=== PATIENT | male | born 1935 | race American Indian/Alaskan Native ===

== ENCOUNTER 2022-11-04 11:46 | Emergency (ER) | payer MEDICAID ==
[~2022-11-04] VITALS: Ht 172.7 cm; Wt 72.7 kg
[2022-11-04 12:02] VITALS: BP 94/66
[2022-11-04] MEDS ORDERED: DOCU-171 PO (13:36)
[2022-11-04] MEDS ORDERED: MELA5TAB12 PO (13:36)
== END 2022-11-04 13:52 | disposition home or self-care (01) ==
LOC: ER 11:47
DX: G43.909 Migraine, unspecified, not intractable, without status migrainosus (principal); K59.00 Constipation, unspecified; N39.43 Post-void dribbling
CPT/HCPCS: 99284

== ENCOUNTER 2024-11-01 09:00 | Inpatient (IN) | payer MEDICARE, OTHER ==
[2024-11-01] VITALS (12 sets, daily range): BP systolic 81–103; BP diastolic 31–61; PULSE 84–113; RESP 11–13; O2SAT 92–98
[~2024-11-01] VITALS: Ht 175.3 cm; Wt 64.0 kg
[~2024-11-01 09:00] MED LIST: AMLO5TAB PO; APIX5TAB5 PO; CHOL50CA2 PO; DOCU-171 PO; MELA5TAB12 PO; METO-395 PO; PRAZ2CAP2 PO; TRAZ-251 PO
--- NOTE | 2024-11-01 09:36 | Physician Documentation ---
History of Present Illness General Chief Complaint: Difficulty Breathing Stated Complaint: DIFFICULTY BREATHING Time Seen by MD: 09:32 Primary Medical Doctor: MARIYA History of Present Illness Initial Comments The patient is an 88-year-old male with a history of atrial fibrillation, bilateral pleural effusions, liver disease, dementia, hypertension, prostate can cer and pneumonia who comes to us from [place] with hypotension. He was transferred there for rehab after being treated for pneumonia here. He was admitted here on 10/15/2024 and discharged on 10/20/2024 two [place]. He was thought to have multifocal pneumonia and possibly CHF. Medication Reconciliation Allergies: Coded Allergies: No Known Allergies (Unverified , 11/01/24) Scheduled Amlodipine Besylate (Amlodipine Besylate), 1 TABLET PO DAILY, (Reported) Apixaban (Eliquis), 1 TAB PO BID, (Reported) Cholecalciferol (Vitamin D3) (Vitamin D3), 1 CAP PO DAILY, (Reported) Docusate Sodium (Dulcolax Stool Softener), 1 CAP PO DAILY Melatonin (Melatonin), 1 TAB PO HS Metoprolol Succinate (Metoprolol Succinate), 1 TAB PO DAILY, (Reported) Prazosin Hcl (Prazosin Hcl), 2 CAP PO HS, (Reported) Trazodone HCl (Trazodone HCl), 1 TAB PO HS, (Reported) Discontinued Medications Amoxicillin/Potassium Clav (Augmentin 500-125 Tablet), 1 TAB PO Q12H Discontinued Reason: Auto Discontinued Review of Systems ROS Unable to obtain due to acuity Physical Exam Physical Exam Vital Signs: Temperature: 99.1, Heart Rate: 125, Respiratory Rate: 12, BP: 78/38, Pulse Oximetry: 98, Weight: 64.000 Oxygen Flow Rate: 2.0 General Appearance Physical Exam Vitals and nursing note reviewed. Constitutional: General: Patient is awake, alert, oriented x 2 appears acutely ill. Appearance: Normal appearance. Patient is ill-appearing. HENT: Head: Normocephalic and atraumatic. Mouth/Throat: Mouth: Mucous membranes are moist. Pharynx: Oropharynx is clear. Eyes: General: No scleral icterus. Extraocular Movements: Extraocular movements intact. Pupils: Pupils are equal, round, and reactive to light. Cardiovascular: Rate and Rhythm: Normal rate and regular rhythm. Heart sounds: No murmur heard. Pulmonary: Effort: No respiratory distress. Breath sounds: Rales and rhonchi bilaterally Abdominal: General: There is no distension. Palpations: There is no fluid wave, hepatomegaly or mass. Tenderness: There is no abdominal tenderness. There is no guarding. Musculoskeletal: General: No swelling or deformity. Skin: Coloration: Skin is not jaundiced. Findings: No erythema or rash. Progress Results/Orders Results/Orders Orders - HERNANDO GOMEZ MD Culture Blood (11/01/24 09:16) Chest,Single View (11/01/24 09:16) Monitor (11/01/24 09:16) Oxygen (11/01/24 09:16) Saline Lock (11/01/24 09:16) Cefepime 2gm In D5w 50ml (Cefepime-D5w 2 (11/01/24 10:15) Page Hospitalist (11/01/24 11:43) Norepinephrine 8mg/ 250ml Ns (Norepineph (11/01/24 12:30) Completed Orders - HERNANDO GOMEZ MD Cbc/Diff (11/01/24 09:16) Chest,Single View (11/01/24 09:16) Procalcitonin (11/01/24 09:16) BMP (11/01/24 09:16) Lacticsepsis (11/01/24 09:16) Ammonia (11/01/24 09:32) MG (11/01/24 09:32) CMP (11/01/24 09:32) Hs Troponin I W Calculations (11/01/24 09:32) Pt Inr (11/01/24 09:32) Lactic,2hr (11/01/24 11:37) Ua W/Microscopic, Cult If Ind (11/01/24 14:30) Medications Received in ER Medications (Trade) Dose Ordered Sig/Sheyla Route PRN Reason Start Time Stop Time Status Last Admin Dose Admin Cefepime/Dextrose 50 ml @ 100 mls/hr Q8H IV 11/01/24 10:15 11/01/24 16:00 100 MLS/HR Lactated Ringer's 1,000 ml @ 1,000 mls/hr ONCE ONCE IV 11/01/24 12:15 11/01/24 13:14 DC 11/01/24 12:19 1,000 MLS/HR Lactated Ringer's 1,000 ml @ 150 mls/hr Q6H40M IV 11/01/24 12:35 11/01/24 14:45 150 MLS/HR Vital Signs 11/01/24 11/01/24 11/01/24 11/01/24 09:18 09:54 10:15 11:25 Temp 99.1 99.1 99.1 Pulse 125 95 84 Resp 12 13 16 15 B/P (MAP) 78/38 82/40 (54) 83/51 (62) Pulse Ox 98 99 99 O2 Flow Rate 2.0 2.0 2.0 11/01/24 12:40 Temp 99.1 Pulse 77 Resp 14 B/P (MAP) 94/52 (66) Pulse Ox 95 O2 Flow Rate 4.0 Laboratory Tests Test 11/01/24 10:04 11/01/24 11:46 White Blood Count 7.3 Red Blood Count 3.57 L Hemoglobin 11.5 L Hematocrit 34.1 L Mean Corpuscular Volume 95.5 Mean Corpuscular Hemoglobin 32.1 H Mean Corpuscular Hemoglobin Concent 33.7 Red Cell Distribution Width 16.7 H Platelet Count 107 L Mean Platelet Volume 9.0 Neutrophils (%) (Auto) 88.6 H Lymphocytes (%) (Auto) 5.3 L Monocytes (%) (Auto) 5.9 Eosinophils (%) (Auto) 0 Basophils (%) (Auto) 0.2 Neutrophils # (Auto) 6.5 Lymphocytes # (Auto) 0.4 L Monocytes # (Auto) 0.4 Eosinophils # (Auto) 0.0 Basophils # (Auto) 0.0 CBC Comment Prothrombin Time 16.9 H INR International Normalized Ratio 1.7 Coagulation Comments Sodium Level 146 H Potassium Level 4.6 Chloride Level 110 H Carbon Dioxide Level 31.6 Anion Gap 4 L Blood Urea Nitrogen 37 H Creatinine 0.74 Estimated GFR/1.73 m2 > 90 BUN/Creatinine Ratio 50.0 H Glucose Level 99 Lactic Acid Level 2.4 H 2.0 Calcium Level 10.3 H Magnesium Level 1.9 Total Bilirubin 2.2 H Aspartate Amino Transf (AST/SGOT) 39 H Alanine Aminotransferase (ALT/SGPT) 15 Alkaline Phosphatase 95 Ammonia 27 Troponin I High Sensitivity 19 Total Protein 4.7 L Albumin 2.0 L Globulin 2.7 Albumin/Globulin Ratio 0.7 L Procalcitonin 0.27 Chemistry Comments Microbiology Date/Time Source Procedure Growth Status 11/01/24 10:14 Blood Arm Left Blood Culture - Preliminary NEGATIVE (LESS THAN 24 HOURS) Resulted Medical Decision Making Findings This 88-year-old male was transferred here from [facility] with hypotension. He had been sent there after being treated here for pneumonia. It appears he may still have pneumonia and I have covered this with antibiotics. He requires admission to the registered nurse obstetrics. Departure Disposition: ADMITTED INPATIENT Admitted to Inpatient Unit: to registered nurse obstetrics Admission Level of Care: Critcal Care Impression: Primary Impression: Pneumonia Additional Impression: Hypotension Condition: Guarded Referrals: NO PRIMARY CARE PROVIDER (PCP) Critical Care Note Critical Care Note Due to the high probability of multi-system failure required my full attention for about 60 minutes while the patient was critical. I provided critical care services which included medication orders, frequent re-evaluations, response to treatment, renewing test results, and discussing case with various consultants. Unless specifically stated all procedures, tests, and medications were performed/interpreted under the direct supervision of the emergency department physician. Signature Scribe Signature: . Attestation: . HERNANDO GOMEZ MD Nov 01, 2024 09:36
--- NOTE | 2024-11-01 09:45 | RADIOLOGY REPORT ---
DI CHEST,SINGLE VIEW, HISTORY: SOB- RALES COMPARISON: DI CHEST,SINGLE VIEW on DOS: 10/15/24 DI CHEST,SINGLE VIEW on DOS: 10/15/24 TECHNICAL DATA: 1 view of the chest was obtained. FINDINGS: Lines and tubes: None Cardiomediastinal silhouette: Enlarged Pulmonary vasculature: Prominent Lung expansion: normal Lung airspace: Patchy perihilar opacities. Lung interstitium: Prominent Pleura: Moderate left effusion. Pneumothorax: no Bones: Unremarkable Other: no IMPRESSION: Patchy perihialr airspace opacities with moderate left pleural effusion could be pulmonary edema.
[2024-11-01 10:22] LABS: BASOPHILS % (AUTO) 0.2 % (0-1); EOSINOPHILS % (AUTO) 0 % (0-6); HEMATOCRIT 34.1 % (42.0-52.0); HEMOGLOBIN 11.5 g/dl (14.0-17.9); LYMPHOCYTES # (AUTO) 0.4 X10'3 (1.1-4.8); LYMPHOCYTES % (AUTO) 5.3 % (21-51); MEAN CORPUSCULAR HEMOGLOBIN 32.1 PG (27.0-31.0); MEAN CORPUSCULAR HGB CONC 33.7 g/dL (33.0-36.5); MEAN CORPUSCULAR VOLUME 95.5 FL (78-98); MONOCYTES # (AUTO) 0.4 X10'3 (0-0.9); MONOCYTES % (AUTO) 5.9 % (2-12); NEUTROPHILS # (AUTO) 6.5 X10'3 (1.8-7.7); NEUTROPHILS % (AUTO) 88.6 % (42-75); PLATELET COUNT 107 X10'3 (140-440); RED BLOOD COUNT 3.57 X10'6 (4.70-6.10); RED CELL DISTRIBUTION WIDTH 16.7 % (11.5-14.5); WHITE BLOOD COUNT 7.3 X10'3 (4.5-11.0)
[2024-11-01 10:31] LABS: INR 1.7 INR; PROTHROMBIN TIME 16.9 SECONDS (9.0-12.0)
[2024-11-01] MEDS: CEFEPIME 2gm in D5W 50mL 50 ML IV SCH (10:38)
[2024-11-01 10:43] LABS: ALANINE AMINOTRANSFERASE 15 U/L (12-78); ALBUMIN/GLOBULIN RATIO 0.7 (1.1-1.5); ALKALINE PHOSPHATASE 95 IU/L (46-116); ANION GAP 4 (8-16); ASPARTATE AMINO TRANSFERASE 39 U/L (10-37); BILIRUBIN,TOTAL 2.2 MG/DL (0.1-1.0); BLOOD UREA NITROGEN 37 MG/DL (7-18); CALCIUM 10.3 MG/DL (8.5-10.1); CHLORIDE 110 MMOL/L (99-107); CREATININE 0.74 MG/DL (0.60-1.10); GLUCOSE 99 MG/DL (70-104); MAGNESIUM 1.9 MG/DL (1.5-2.4); POTASSIUM 4.6 MMOL/L (3.5-5.1); SODIUM 146 MMOL/L (135-145); TOTAL CARBON DIOXIDE 31.6 MMOL/L (24-32); TOTAL PROTEIN 4.7 G/DL (6.4-8.2); eCRCL 62 ML/MIN; eGFR > 90 ML/MIN
[2024-11-01] MEDS: ringers solution, lacted 1,000 ML IV ONE ×2 (12:19→16:13)
[2024-11-01] MEDS ORDERED: NORepinephrine 32mg/250mL bag 250 ML IV SCH (12:20)
[2024-11-01] MEDS: NORepinephrine 8mg/ 250ml NS 250 ML IV SCH (12:30)
[2024-11-01] MEDS ORDERED: acetaminophen 325mg tablet PO PRN ×2 (12:35)
[2024-11-01] MEDS: LidoCAINE 2% Topical Jelly 11mL syringe (UROJET) TOP ONE (12:35)
[2024-11-01] MEDS ORDERED: ondansetron/PF 4mg/2ml inj IV PRN (12:35)
[2024-11-01] MEDS ORDERED: morphine 4 MG/ML inj SYRINge IV PRN (12:35)
[2024-11-01] MEDS ORDERED: morphine 2 MG/ML inj. syringe IV PRN (12:35)
[2024-11-01] MEDS ORDERED: magnesium hydroxide 30ml (MOM) UD suspension PO PRN (12:35)
--- NOTE | 2024-11-01 12:43 | HISTORY AND PHYSICAL ---
History of Present Illness End CC ~ Admission Diagnosis:.: Hypotension History of Present Illness Recently discharge to a SNF from this hospital with PNA. H/O Advance Dementia with very limited activity level. Very poor appetite since last admission and gradually more weak. Sent to ER due to hypoxemia and hypotension. He does have large L Pleural Effusion. Allergies: Coded Allergies: No Known Allergies (Unverified , 11/01/24) Home Medications Home Medications Active Melatonin 5 Mg Tab.rapdis 1 Tab PO HS 30 Days Dulcolax Stool Softener (Docusate Sodium) 100 Mg Capsule 1 Cap PO DAILY 30 Days Reported Trazodone HCl 50 Mg Tablet 1 Tab PO HS 30 Days Prazosin Hcl 2 Mg Capsule 2 Cap PO HS 30 Days Metoprolol Succinate 25 Mg Tab.sr.24h 1 Tab PO DAILY 30 Days Vitamin D3 (Cholecalciferol (Vitamin D3)) 50 Mcg (2000 Unit) Capsule 1 Cap PO DAILY 30 Days Eliquis (Apixaban) 5 Mg (74 Tabs) Tab.ds.pk 1 Tab PO BID 30 Days Amlodipine Besylate 5 Mg Tablet 1 Tablet PO DAILY Past Family History Patient History: FH: arthritis MOTHER FH: dementia MOTHER Advance Care Planning Advanced Care plannin - 30 Minutes Review of Systems Unable to obtain complete ROS: dementia Physical Exam Last Vital Signs recorded: Temperature: 99.1, Source: Oral, Heart Rate: 84, Respiratory Rate: 15, BP: 83/51, Pulse Oximetry: 99, Weight: 64.000 Physical Exam Disheveled General Appearance: cachetic EENT: PERRL/EOMI Neck: full range of motion Respiratory: decreased breath sounds Cardiovascular: irregularly irregular Peripheral Pulses: 1+ carotid (R), 1+ carotid (L), 1+ radial (R), 1+ radial (L), 1+ femoral (R), 1+ femoral (L), 1+ dorsalis pedis (R), 1+ dorsalis pedis (L), 1+ posterior tib (R), 1+ posterior tib (L), 1+ other Gastrointestinal: bowels sounds present Extremities: no edema Neurologic: not oriented, memory impaired Psychiatric: depressed affect Skin: warm/dry Results Diagram Lab Result Diagram: 11/01/24 1004 11/01/24 1004 Assessment/Plan Additional Plan 1-Hypoxemic Resp Failure -Titrate O2 for SpO2>92% 2-L Pleural Effusion -Thoracentesis? 3-H/O Chronic A Fib -Continue Eliquis -Hold Lopressor 4-H/O HTN -Hold anti-HTN 5-Advance Dementia -Fall precaution -Code status?? 6-Hypotension due to Dehydration -IVF resuscitation -F/U CHELSEA Hua CC time 35min AIDAN HUA MD Nov 01, 2024 12:43
--- NOTE | 2024-11-01 13:58 | RADIOLOGY REPORT ---
CHEST RADIOGRAPH Indication: Infiltrate Technique: Single frontal view of the chest was obtained COMPARISON: DI CHEST,SINGLE VIEW on DOS: 11/01/24, DI CHEST,SINGLE VIEW on DOS: 10/15/24 FINDINGS: Lines and Tubes: None Lungs: Multifocal airspace disease. Pleura: Moderate left pleural effusion. No pneumothorax. Cardiomediastinal contours: Unremarkable Bones: Unremarkable IMPRESSION: No significant interval change.
[2024-11-01] MEDS: ringers solution, lacted 1,000 ML IV SCH (14:45)
[2024-11-01 15:09] LABS: BILIRUBIN,URINE NEGATIVE (Neg); CLARITY,URINE SLIGHTLY CLOUDY (Clear); COLOR,URINE YELLOW (Yellow); GLUCOSE, URINE NEGATIVE (Neg); KETONES,URINE NEGATIVE (Neg); LEUKOCYTE ESTERASE ,URINE TRACE (Neg); NITRITES, URINE NEGATIVE (Neg); OCCULT BLOOD,URINE SMALL (Neg); PH,URINE 5.5 (4.8-8.0); PROTEIN,URINE NEGATIVE (Neg); UROBILINOGEN,URINE 0.2 E.U/dL (0.2-1.0)
[2024-11-01 15:22] LABS: UA COLLECTION TYPE NON-SPECIFIED
[2024-11-01 15:25] LABS: BACTERIA,URINE FEW /HPF (Neg); CAL OXALATE CRYSTALS 4+ /HPF (NEGATIVE); SQUAMOUS EPITHELIAL CELL,UR FEW /LPF (FEW); TRANSITIONAL EPI CELLS,URINE FEW /HPF; WBC,URINE 0-4 /HPF (0-4)
[2024-11-01 15:26] LABS: HYALINE CASTS >30 /LPF (NEGATIVE)
[2024-11-01] MEDS: amiodarone 150mg/dext, iso-os 100 ML IV ONE (18:36)
[2024-11-01] MEDS: amiodarone/D5 360MG/200ML BAG 200 ML IV SCH (18:45)
--- NOTE | 2024-11-01 19:01 | CONSULTATION REPORT ---
Consult Providers to CC ~ History of Present Illness Reason for Admit\Complaint: hypotension History of Present Illness Patient is 88-year-old chronically ill. Recently admitted for multifocal pneumonia, metabolic encephalopathy, UTI, atrial fibrillation mechanical fall with bilateral hip pain and internal rotation of left hip acute kidney injury on chronic kidney disease stage 3 and elevated BNP. Today he comes to us from [facility] with hypotension. When I evaluated the patient patient was hypotensive with left pleural effusion and coarse breath sounds. Requiring 4 L of oxygen. Case was discussed with cash application clerk specialist Dr. Silveira who is willing to take care of this patient in ICU. We will continue to follow patient along with cash application clerk team. Due to patient's severe dementia unable to get any history from him granddaughter was present at bedside.he has dementia for several years has a accompanied by his granddaughter who is his caregiver and the patient lives with his granddaughter. Patient's current code status is full code as per POLST form. Allergies: Coded Allergies: No Known Allergies (Unverified , 11/01/24) Home Medications Home Medications Active Melatonin 5 Mg Tab.rapdis 1 Tab PO HS 30 Days Dulcolax Stool Softener (Docusate Sodium) 100 Mg Capsule 1 Cap PO DAILY 30 Days Reported Trazodone HCl 50 Mg Tablet 1 Tab PO HS 30 Days Prazosin Hcl 2 Mg Capsule 2 Cap PO HS 30 Days Metoprolol Succinate 25 Mg Tab.sr.24h 1 Tab PO DAILY 30 Days Vitamin D3 (Cholecalciferol (Vitamin D3)) 50 Mcg (2000 Unit) Capsule 1 Cap PO DAILY 30 Days Eliquis (Apixaban) 5 Mg (74 Tabs) Tab.ds.pk 1 Tab PO BID 30 Days Amlodipine Besylate 5 Mg Tablet 1 Tablet PO DAILY Past Medical History Past Medical History Atrial fibrillation Prostate cancer Skin cancer Dementia Hypertension Liver disease/hepatitis 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 granddaughter who is his caregiver and the patient lives with his granddaughter. ROS HYUN Unable to get much review of system from the patient due to dementia Exam Vitals: Vital Signs Date Time Temp Pulse Resp B/P (MAP) Pulse Ox O2 Delivery O2 Flow Rate FiO2 11/01/24 18:00 96.4 92 12 84/43 (57) 97 Nasal Cannula 4.0 General: General-patient not in any acute distress , awake, chronically ill-appearing HEENT-atraumatic normocephalic, neck supple without elevated JVD, no thyromegaly or carotid bruit. No lymphadenopathy bilaterally. Eyes-no icterus or pallor seen in eyes Chest-coarse breath sounds to auscultation bilaterally, abdominal breathing . Heart-S1-S2 normal, regular heart rate no murmur Abdomen bowel sounds positive on auscultation, soft nondistended nontender no guarding, no rigidity Neurology-grossly intact, nonfocal alert awake oriented Extremity- no pedal edema , left lower extremity appeared bigger than right on appearance. Psychiatry - patient is not confused or agitated partially cooperated during physical examination Diagnostic Data Last Recorded Lab Results: 11/01/24 1004 11/01/24 1004 Diagnostic Data: Laboratory Tests Test 11/01/24 10:04 Prothrombin Time 16.9 SECONDS (9.0-12.0) H INR International Normalized Ratio 1.7 INR Coagulation Comments Additional Plan Patient is 88-year-old chronically ill. Recently admitted for multifocal pneumonia, metabolic encephalopathy, UTI, atrial fibrillation mechanical fall with bilateral hip pain and internal rotation of left hip acute kidney injury on chronic kidney disease stage 3 and elevated BNP. Today he comes to us from [facility] with hypotension. When I evaluated the patient patient was hypotensive with left pleural effusion and coarse breath sounds. Requiring 4 L of oxygen. Case was discussed with cash application clerk specialist Dr. Silveira who is willing to take care of this patient in ICU. We will continue to follow patient along with cash application clerk team. Due to patient's severe dementia unable to get any history from him granddaughter was present at bedside.he has dementia for several years has a accompanied by his granddaughter who is his caregiver and the patient lives with his granddaughter. Patient's current code status is full code as per POLST form. Patient's current condition guarded we will continue to follow patient in a.m. further management as recommended by Dr Hua . Date of Service: Nov 01, 2024 Billing Provider: VICKEY MENDOZA MD Common Visit Codes: [id number] INP/OBS CARE (HIGH) Inpatient Consultation Codes: [id number] CONSULT <45MIN VICKEY MENDOZA MD Nov 01, 2024 19:01
[2024-11-01] MEDS: famotidine/PF 10 mg/ml inj IV SCH (20:39)
[2024-11-02] VITALS (28 sets, daily range): BP systolic 100–139; BP diastolic 37–83; PULSE 80–118; RESP 12–21; O2SAT 88–99
[2024-11-02] MEDS: albumin (human) 25% 100ml IV 100 ML IV ONE (01:36)
[2024-11-02] MEDS: albumin (human) 25% 100 ML IV solution IV ONE (01:37)
--- NOTE | 2024-11-02 05:58 | RADIOLOGY REPORT ---
EXAM: XR Chest, 1 View CLINICAL INDICATION: Pain TECHNIQUE: Frontal view of the chest. COMPARISON: XR Chest dated 11/01/2024 FINDINGS: LUNGS AND PLEURAL SPACES: Large left pleural effusion. HEART: Cardiomegaly with pulmonary congestion and edema. Superimposed pneumonia cannot be excluded. MEDIASTINUM: Unremarkable. Normal mediastinal contour. BONES/JOINTS: Unremarkable. No acute fracture. IMPRESSION: 1. Cardiomegaly with pulmonary congestion and edema. Superimposed pneumonia cannot be excluded. 2. Large left pleural effusion.
[2024-11-02 06:03] LABS: BASOPHILS % (AUTO) 0.1 % (0-1); EOSINOPHILS % (AUTO) 0 % (0-6); HEMATOCRIT 31.6 % (42.0-52.0); HEMOGLOBIN 10.8 g/dl (14.0-17.9); LYMPHOCYTES # (AUTO) 0.4 X10'3 (1.1-4.8); LYMPHOCYTES % (AUTO) 4.6 % (21-51); MEAN CORPUSCULAR HEMOGLOBIN 32.7 PG (27.0-31.0); MEAN CORPUSCULAR HGB CONC 34.1 g/dL (33.0-36.5); MEAN CORPUSCULAR VOLUME 95.9 FL (78-98); MEAN PLATELET VOLUME 9.5 FL (7.4-10.4); MONOCYTES # (AUTO) 0.5 X10'3 (0-0.9); MONOCYTES % (AUTO) 6.4 % (2-12); NEUTROPHILS # (AUTO) 7.2 X10'3 (1.8-7.7); NEUTROPHILS % (AUTO) 88.9 % (42-75); PLATELET COUNT 109 X10'3 (140-440); RED BLOOD COUNT 3.29 X10'6 (4.70-6.10); RED CELL DISTRIBUTION WIDTH 16.5 % (11.5-14.5); WHITE BLOOD COUNT 8.1 X10'3 (4.5-11.0)
--- NOTE | 2024-11-02 06:22 | PROGRESS NOTE ---
Progress Note Dictate Providers to CC ~ Progress Note: Gradually deteriorating Central Line/PICC still needed: N\A Wise Indications Met/Not Met: F/C Indications Met Antibiotic Ordered?: No Subjective Subjective Mild distress Objective Vitals Vital Signs Date Time Temp Pulse Resp B/P (MAP) Pulse Ox O2 Delivery O2 Flow Rate FiO2 11/02/24 05:58 97.3 91 15 123/65 (84) 98 Nasal Cannula 4.0 Lab Results: 11/01/24 1004 11/01/24 1004 Objective Heart: A Fib Lungs: Decrease BS at bases L>R Abdomen: Soft, non-tender, BS (+) Ext: No edema Neuro: Confuse Coagulation Studies Laboratory Tests Test 11/01/24 10:04 Prothrombin Time 16.9 SECONDS (9.0-12.0) H INR International Normalized Ratio 1.7 INR Coagulation Comments Problem\Assessment\Plan Additional Plan 1-Hypoxemic Resp Failure -Titrate O2 for SpO2>92% 2-Bilateral Pleural Effusion L>R -Thoracentesis? 3-Chronic A Fib -Continue current tx 4-Advance Dementia -Supportive tx Strongly recommend hospice care. Will d/w family again A Melita CC time 35min Sepsis Screening Reassessment Date: Nov 02, 2024 AIDAN DAMICO MD Nov 02, 2024 06:21
[2024-11-02 06:34] LABS: ALBUMIN 2.4 G/DL (3.4-5.0); ANION GAP 3 (8-16); BLOOD UREA NITROGEN 33 MG/DL (7-18); CALCIUM 9.9 MG/DL (8.5-10.1); CHLORIDE 108 MMOL/L (99-107); CREATININE 0.66 MG/DL (0.60-1.10); GLUCOSE 79 MG/DL (70-104); MAGNESIUM 1.6 MG/DL (1.5-2.4); PHOSPHORUS 2.6 MG/DL (2.3-4.5); POTASSIUM 3.8 MMOL/L (3.5-5.1); SODIUM 142 MMOL/L (135-145); THYROID STIMULATING HORMONE 4.91 ulU/ml (0.34-4.50); TOTAL CARBON DIOXIDE 31.5 MMOL/L (24-32); eCRCL 70 ML/MIN; eGFR > 90 ML/MIN
[2024-11-02 08:52] LABS: ALANINE AMINOTRANSFERASE 14 U/L (12-78); ALKALINE PHOSPHATASE 80 IU/L (46-116); ASPARTATE AMINO TRANSFERASE 37 U/L (10-37); BILIRUBIN,TOTAL 2.2 MG/DL (0.1-1.0); FREE T4 (FREE THYROXINE) 1.31 NG/DL (0.73-1.40); TOTAL PROTEIN 4.8 G/DL (6.4-8.2)
--- NOTE | 2024-11-02 13:18 | PROGRESS NOTE- Residence ---
Progress Note - Resident Providers to CC Resident Creating Document: AZAEL WARE, DAHLIA ~ Antibiotic Timeout Antibiotic Ordered?: Yes Subjective Patient has been evaluated at the bedside. The patient is currently lethargic. Currently ongoing conversation with family for possible comfort care by supervisor coil winding. Objective Vital Signs Date Time Temp Pulse Resp B/P (MAP) Pulse Ox O2 Delivery O2 Flow Rate FiO2 11/02/24 12:00 96.4 80 15 107/71 (83) 97 Nasal Cannula 4.0 Physical exam: General: Patient is currently lethargic. HEENT: Conjunctive are pink, sclerae clear, no icterus, pupil is equal in both sides, reactive to light, no ear discharge, no pharyngeal erythema or an edema. Neck: Supple, no JVD, no lymphadenopathy and thyromegaly. Chest: Diminished air entry in the left side, coarse breath sounds auscultated bilaterally. 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 Central Nervous System: The patient is currently lethargic. Skin: Warm and dry. Result Diagram: 11/02/2442411/02/24 042 Coagulation Studies Laboratory Tests Test 11/01/24 10:04 Prothrombin Time 16.9 SECONDS (9.0-12.0) H INR International Normalized Ratio 1.7 INR Coagulation Comments Assessment Assessment 88-year-old male patient with baseline dementia, admitted with chief complaint of hypotension after being found with low blood pressures in [facility]. Plan Plan Acute hypoxemic respiratory failure: Bacterial pneumonia: Left pleural effusion: Chest x-ray: Cardiomegaly with pulmonary congestion and edema. Superimposed pneumonia cannot be excluded. Large left pleural effusion. Patient received albumin. Current blood culture no growth after one day. Currently on cefepime IV day 2. Possible thoracentesis. Continue management as per supervisor coil winding. Hypotension: Currently off of pressors. AFib with RVR: The patient came to the hospital with heart rate of 121. Currently on amiodarone drip. Code status: Limited. DVT prophylaxis: SCDs Analgesia/sedation: Morphine Line/tube: PIV GI prophylaxis: Famotidine Nutrition: NPO PT: Ordered Prognosis: Guarded Disposition: Ongoing conversation with family for possible comfort care by supervisor coil winding. Continue management as per supervisor coil winding. Azael Rashid Internal Medicine Resident [facility] Date of Service: Nov 02, 2024 Billing Provider: VICKEY MENDOZA MD Common Visit Codes: [id number] INP/OBS CARE(MOD) AZAEL WARE, RES Nov 02, 2024 13:18 VICKEY MENDOZA MD Nov 02, 2024 17:43
[2024-11-02] MEDS: furosemide 10 MG/1 ML 10ml inj IV ONE (14:00)
[2024-11-03] VITALS (28 sets, daily range): BP systolic 101–144; BP diastolic 42–74; PULSE 78–107; RESP 14–30; TEMP 97.6–97.8; O2SAT 88–97
[2024-11-03 02:02] LABS: BASOPHILS % (AUTO) 0.3 % (0-1); EOSINOPHILS % (AUTO) 0 % (0-6); HEMATOCRIT 32.2 % (42.0-52.0); HEMOGLOBIN 10.9 g/dl (14.0-17.9); LYMPHOCYTES # (AUTO) 0.5 X10'3 (1.1-4.8); LYMPHOCYTES % (AUTO) 5.9 % (21-51); MEAN CORPUSCULAR HEMOGLOBIN 32.4 PG (27.0-31.0); MEAN CORPUSCULAR HGB CONC 33.9 g/dL (33.0-36.5); MEAN CORPUSCULAR VOLUME 95.7 FL (78-98); MEAN PLATELET VOLUME 8.8 FL (7.4-10.4); MONOCYTES # (AUTO) 0.5 X10'3 (0-0.9); MONOCYTES % (AUTO) 6.3 % (2-12); NEUTROPHILS % (AUTO) 87.5 % (42-75); PLATELET COUNT 108 X10'3 (140-440); RED BLOOD COUNT 3.36 X10'6 (4.70-6.10); RED CELL DISTRIBUTION WIDTH 16.9 % (11.5-14.5)
[2024-11-03 02:16] LABS: ALANINE AMINOTRANSFERASE 10 U/L (12-78); ALBUMIN 1.9 G/DL (3.4-5.0); ALBUMIN/GLOBULIN RATIO 0.8 (1.1-1.5); ALKALINE PHOSPHATASE 76 IU/L (46-116); ANION GAP 4 (8-16); ASPARTATE AMINO TRANSFERASE 30 U/L (10-37); BLOOD UREA NITROGEN 27 MG/DL (7-18); BUN/CREATININE RATIO 42.9 (10.0-20.0); CALCIUM 9.6 MG/DL (8.5-10.1); CHLORIDE 110 MMOL/L (99-107); CREATININE 0.63 MG/DL (0.60-1.10); GLUCOSE 81 MG/DL (70-104); MAGNESIUM 1.5 MG/DL (1.5-2.4); PHOSPHORUS 2.7 MG/DL (2.3-4.5); SODIUM 146 MMOL/L (135-145); TOTAL CARBON DIOXIDE 31.7 MMOL/L (24-32); TOTAL PROTEIN 4.4 G/DL (6.4-8.2); eCRCL 73 ML/MIN; eGFR > 90 ML/MIN
[2024-11-03] MEDS: Potassium Cl inj 40 MEQ in normal saline 500ml IV soln 500 ML IV ONE (02:50)
--- NOTE | 2024-11-03 06:27 | PROGRESS NOTE ---
Progress Note Dictate Providers to CC ~ Progress Note: No new acute issues overnight. On HFNC O2 Central Line/PICC still needed: N\A Wise Indications Met/Not Met: F/C Indications Met Antibiotic Ordered?: No Subjective Subjective Mild distress Objective Vitals Vital Signs Date Time Temp Pulse Resp B/P (MAP) Pulse Ox O2 Delivery O2 Flow Rate FiO2 11/03/24 06:00 97.0 92 21 137/68 (91) 94 High Flow Nasal Cannula 40.0 60 Lab Results: 11/03/24 0145 11/03/24 0145 Objective Heart: A Fib Lungs: Decrease BS at bases L>R Abdomen: Soft, non-tender, BS (+) Ext: No edema Neuro: Confuse Coagulation Studies Laboratory Tests Test 11/01/24 10:04 Prothrombin Time 16.9 SECONDS (9.0-12.0) H INR International Normalized Ratio 1.7 INR Coagulation Comments Problem\Assessment\Plan Additional Plan 1-Advance Dementia -Would strongly recommend Hospice 2-Dysphagia -Unless code status is changed, will need PEG 3-Pleural Effusion -Thoracentesis 4-Chronic A Fib -Continue current tx Anticipate transfer soon A Melita CC time 36min Sepsis Screening Reassessment Date: Nov 03, 2024 AIDAN DAMICO MD Nov 03, 2024 06:27
--- NOTE | 2024-11-03 08:31 | RADIOLOGY REPORT ---
CHEST RADIOGRAPH Indication: infiltrate Technique: Single frontal view of the chest was obtained COMPARISON: DI CHEST,SINGLE VIEW on DOS: 11/02/24, DI CHEST,SINGLE VIEW on DOS: 11/01/24, DI CHEST,SING LE VIEW on DOS: 11/01/24, DI CHEST,SINGLE VIEW on DOS: 10/15/24 FINDINGS: Lines and Tubes: None Lungs: Multifocal airspace disease. Pleura: Moderate left pleural effusion No pneumothorax. Cardiomediastinal contours: Cardiomegaly Bones: Unremarkable IMPRESSION: Multifocal airspace disease and moderate left pleural effusion.
--- NOTE | 2024-11-03 09:52 | PROCEDURE NOTE CC ---
Procedure Note CC Providers to CC ~ Procedure Name: Thoracentesis Description: Indication: Pleural Effusion Consent: Family Time-out: Done Site: Left Anesthesia: Local Technique: US guided Fluid: 1300ml Blood-tinged fluid Complication: None EBL: 0ml Sepsis Screening Reassessment Date: Nov 03, 2024 AIDAN DAMICO MD Nov 03, 2024 09:52
[2024-11-03] MEDS ORDERED: amiodarone 200mg tablet PO SCH (10:10)
[2024-11-03] MEDS ORDERED: POTASSIUM CHLORIDE 20 MEQ/15 ML oral solution PO PRN ×4 (10:45→15:58)
[2024-11-03] MEDS ORDERED: acetaminophen 325mg/10.15ml oral unit dose solution NG PRN ×2 (10:48→10:49)
[2024-11-03] MEDS ORDERED: amiodarone 200mg tablet NG SCH (10:49)
[2024-11-03] MEDS ORDERED: POTASSIUM CHLORIDE 20 MEQ/15 ML oral solution NG PRN ×2 (10:49)
--- NOTE | 2024-11-03 14:16 | RADIOLOGY REPORT ---
D PROCEDURE: ULTRASOUND GUIDED THORACENTESIS USING TEMPORARY CATHETER HISTORY: 88 Male with left pleural effusion. requiring thoracentesis. DOCUMENTATION: Informed consent was obtained and a procedural time out was performed. TECHNIQUE: Ultrasound was used to locate the LEFT pleural fluid collection with an image archived in the PACS. The skin over the LEFT posterior hemithorax was sterilely prepped, draped, and infiltrated with 1% lidocaine. Under real time ultrasound guidance, the LEFT pleural space was accessed with a 1 9-gauge Yueh needle and connected to Vacutainers. FINDINGS: Ultrasound demonstrates a LEFT pleural effusion. Imaging confirms the needle tip within the fluid. IMPRESSION: SUCCESSFUL ULTRASOUND GUIDED THORACENTESIS. Procedure by Dr. Hua
[2024-11-03] MEDS ORDERED: acetaminophen 325mg/10.15ml oral unit dose solution PO PRN ×2 (15:57→15:58)
--- NOTE | 2024-11-03 18:28 | PROGRESS NOTE- Residence ---
Progress Note - Resident Providers to CC Resident Creating Document: AZAEL WARE RES ~ Antibiotic Timeout Antibiotic Ordered?: Yes Subjective Patient has been evaluated at the bedside. Objective Vital Signs Date Time Temp Pulse Resp B/P (MAP) Pulse Ox O2 Delivery O2 Flow Rate FiO2 11/03/24 15:00 78 20 96 40.0 55 11/03/24 15:00 112/47 (68) High Flow Nasal Cannula 11/03/24 14:00 97.7 Physical exam: General: Patient is currently lethargic. HEENT: Conjunctive are pink, sclerae clear, no icterus, pupil is equal in both sides, reactive to light, no ear discharge, no pharyngeal erythema or an edema. Neck: Supple, no JVD, no lymphadenopathy and thyromegaly. Chest: Diminished air entry in the left side, coarse breath sounds auscultated bilaterally. 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 Central Nervous System: The patient is currently lethargic. Skin: Warm and dry. Result Diagram: 11/03/24 0145 11/03/24 014 Coagulation Studies Laboratory Tests Test 11/01/24 10:04 Prothrombin Time 16.9 SECONDS (9.0-12.0) H INR International Normalized Ratio 1.7 INR Coagulation Comments Assessment Assessment 88-year-old male patient with baseline dementia, admitted with chief complaint of hypotension after being found with low blood pressures in [facility]. Composite Mechanic communicated to the family about the prognosis of the patient on 11/03/2024. The family currently want to keep patient's code status. Plan Plan Acute hypoxemic respiratory failure: Community-acquired Bacterial pneumonia: Covering Gram-positive and Gram- negative organisms: Left pleural effusion, s/p thoracentesis on 11/03/2024: Chest x-ray: Cardiomegaly with pulmonary congestion and edema. Superimposed pneumonia cannot be excluded. Large left pleural effusion. Patient received albumin. Current blood culture no growth after 2 day. Ceftriaxone 1 g IV daily. Culturelle [address] [address]mu b[address]i.d. Thoracentesis performed in 11/03/2024: Removed 1300 mL blood-tinged fluid. Hypotension: Currently off of pressors. Current blood pressure 112/47. On LR at 150 mL/hour. AFib with RVR: Current heart rate 92. Stopped amiodarone drip on 11/03/2024. Currently on amiodarone 200 mg b.i.d. Severe malnutrition POA: Albumin 1.9. Decreased oral intake. Nutrition consulted. Subclinical hypothyroidism: TSH 491. Free T4 1.31. Close follow-up as an outpatient. Code status: Limited. DVT prophylaxis: SCDs Analgesia/sedation: Morphine Line/tube: PIV GI prophylaxis: Famotidine Nutrition: NPO PT: Ordered Prognosis: Guarded Disposition: Continue medical management. Azael Rashid Internal Medicine Resident [facility] Date of Service: Nov 03, 2024 Billing Provider: VICKEY MENDOZA MD Common Visit Codes: [id number] INP/OBS CARE(MOD) AZAEL WARE, RES Nov 03, 2024 18:28 VICKEY MENDOZA MD Nov 03, 2024 18:51
[2024-11-03] MEDS ORDERED: dextrose 50%-water 50ml dispensing syringe IV PRN (19:45)
[2024-11-03] MEDS: lactobacillus rhamnosus 10,000 MMU CELLS/CAPSULE PO SCH (20:00)
[2024-11-03] MEDS: amiodarone 200mg tablet PO SCH (20:00)
[2024-11-03] MEDS: dextrose 50%-water 50ml dispensing syringe IV PRN (20:12)
[2024-11-03] MEDS: CefTRIAXone/D5W-Rocephin 1gm 50 ML IV SCH (20:13)
[2024-11-03] MEDS: potassium Cl 40MEQ/1/2NS 520ml 520 ML IV PRN (23:00)
[2024-11-03] MEDS: potassium Cl 40MEQ/1/2NS 520ml 520 ML IV ONE (23:01)
[2024-11-04] VITALS (12 sets, daily range): BP systolic 93–121; BP diastolic 54–69; PULSE 77–123; RESP 14–29; TEMP 97–98.3; O2SAT 87–96
[2024-11-04 05:52] LABS: BASOPHILS % (AUTO) 0.2 % (0-1); EOSINOPHILS % (AUTO) 0.1 % (0-6); HEMATOCRIT 35.3 % (42.0-52.0); HEMOGLOBIN 11.6 g/dl (14.0-17.9); LYMPHOCYTES # (AUTO) 0.4 X10'3 (1.1-4.8); MEAN CORPUSCULAR HEMOGLOBIN 31.7 PG (27.0-31.0); MEAN PLATELET VOLUME 9.3 FL (7.4-10.4); MONOCYTES # (AUTO) 0.6 X10'3 (0-0.9); MONOCYTES % (AUTO) 6.3 % (2-12); NEUTROPHILS # (AUTO) 8.9 X10'3 (1.8-7.7); NEUTROPHILS % (AUTO) 89.4 % (42-75); PLATELET COUNT 107 X10'3 (140-440); RED BLOOD COUNT 3.67 X10'6 (4.70-6.10); RED CELL DISTRIBUTION WIDTH 17.1 % (11.5-14.5)
[2024-11-04 06:20] LABS: GLUCOSE 74 MG/DL (70-104)
[2024-11-04 06:21] LABS: ALANINE AMINOTRANSFERASE 12 U/L (12-78); ALBUMIN 1.7 G/DL (3.4-5.0); ALBUMIN/GLOBULIN RATIO 0.6 (1.1-1.5); ALKALINE PHOSPHATASE 82 IU/L (46-116); ANION GAP 2 (8-16); ASPARTATE AMINO TRANSFERASE 39 U/L (10-37); BILIRUBIN,TOTAL 2.1 MG/DL (0.1-1.0); BLOOD UREA NITROGEN 26 MG/DL (7-18); BUN/CREATININE RATIO 36.6 (10.0-20.0); CHLORIDE 110 MMOL/L (99-107); CREATININE 0.71 MG/DL (0.60-1.10); FERRITIN 90 NG/ML (26-388); MAGNESIUM 1.4 MG/DL (1.5-2.4); PHOSPHORUS 1.8 MG/DL (2.3-4.5); POTASSIUM 4.1 MMOL/L (3.5-5.1); SODIUM 140 MMOL/L (135-145); TOTAL CARBON DIOXIDE 27.8 MMOL/L (24-32); TOTAL PROTEIN 4.4 G/DL (6.4-8.2); eCRCL 65 ML/MIN; eGFR > 90 ML/MIN
--- NOTE | 2024-11-04 07:21 | RADIOLOGY REPORT ---
EXAM: XR Chest, 1 View CLINICAL INDICATION: Pain TECHNIQUE: Frontal view of the chest. COMPARISON: No relevant prior studies available. FINDINGS: LUNGS AND PLEURAL SPACES: Left pleural effusion. HEART: Cardiomegaly with pulmonary congestion and edema. Superimposed pneumonia cannot be excluded. MEDIASTINUM: Unremarkable. Normal mediastinal contour. BONES/JOINTS: Unremarkable. No acute fracture. IMPRESSION: 1. Cardiomegaly with pulmonary congestion and edema. Superimposed pneumonia cannot be excluded. 2. Left pleural effusion.
[2024-11-04] MEDS: K and/or MAG REPLACEMENT MC SCH (07:50)
[2024-11-04 09:16] LABS: PRO BRAIN NATRIURETIC PEPTIDE 3367 PG/ML (0-450)
[2024-11-04 09:27] LABS: IRON 26 UG/DL (53-167)
[2024-11-04 09:40] LABS: % IRON SATURATION 19 % (11-46); TOTAL IRON BINDING CAPACITY 134 UG/DL (259-388)
--- NOTE | 2024-11-04 15:43 | PROGRESS NOTE- Residence ---
Progress Note - Resident Providers to CC Resident Creating Document: AZAEL WARE, RES ~ Antibiotic Timeout Antibiotic Ordered?: Yes Subjective Patient has been evaluated at the bedside. The patient is currently on high- flow nasal cannula FiO2 75%. Not oriented to person, place or time, mumbling to answer questions. Objective Vital Signs Date Time Temp Pulse Resp B/P (MAP) Pulse Ox O2 Delivery O2 Flow Rate FiO2 11/04/24 11:36 85 20 94 40.0 75 11/04/24 08:00 High Flow Nasal Cannula 11/04/24 06:00 98.3 106/54 (71) Physical exam: General: Patient is currently lethargic. Mumbling when tried to answer questions. HEENT: Conjunctive are pink, sclerae clear, no icterus, pupil is equal in both sides, reactive to light, no ear discharge, no pharyngeal erythema or an edema. Neck: Supple, no JVD, no lymphadenopathy and thyromegaly. Chest: Diminished air entry in the left side, coarse breath sounds auscultated bilaterally. 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 Central Nervous System: The patient is currently lethargic. Skin: Warm and dry. Result Diagram: 11/04/24 0531 11/04/24 0531 Coagulation Studies Laboratory Tests Test 11/01/24 10:04 Prothrombin Time 16.9 SECONDS (9.0-12.0) H INR International Normalized Ratio 1.7 INR Coagulation Comments Assessment Assessment 88-year-old male patient with baseline dementia, admitted with chief complaint of hypotension after being found with low blood pressures in [facility]. 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 Family meeting on 11/04/2024, granddaughter not sure yet about changing code status of the patient. Plan Plan Acute hypoxemic respiratory failure: Community-acquired Bacterial pneumonia: Covering Gram-positive and Gram- negative organisms: Left pleural effusion, s/p thoracentesis on 11/03/2024: Chest x-ray: Cardiomegaly with pulmonary congestion and edema. Superimposed pneumonia cannot be excluded. Large left pleural effusion. Patient received albumin. Current blood culture no growth after 2 day. Ceftriaxone 1 g IV daily. Culturelle [address]677 mmu b.i.d. Thoracentesis performed in 11/03/2024: Removed 1300 mL blood-tinged fluid. 11/02/2024: Continue ceftriaxone 1 g IV daily and Culturelle 70060 mmu b.i.d. Blood cultures no growth so far. Possible exacerbation of diastolic congestive heart failure: Echocardiogram on 10/15/2024: Normal LV size with proximal septal thickening. Overall systolic function is normal. There is hypokinesia of the mid inferoseptal wall. LVEF is 55%. Right ventricle is mildly dilated with normal function. The left atrium size is normal. Trileaflet AV appears mildly sclerotic without stenosis. Mild insufficiency. Mild mitral annular calcification without stenosis. Mild regurgitation. The tricuspid valve is normal in structure with mild regurgitation. The pulmonary valve is normal in structure. with trace insufficiency Aortic root is mildly dilated. Normal pericardium. No effusion. ProBNP: 3367. Chest x-ray: Cardiomegaly with pulmonary congestion and edema. Superimposed pneumonia cannot be excluded. Left pleural effusion. Stopping IV fluids. Not given Lasix due to soft blood pressures. Hypotension-resolved: Currently off of pressors. Current blood pressure 106/54. AFib with RVR: Current heart rate 92. Stopped amiodarone drip on 11/03/2024. Currently on amiodarone 200 mg b.i.d. Severe malnutrition POA: Albumin 1.9. Decreased oral intake. Patient may require PEG tube placement. Nutrition consulted. Subclinical hypothyroidism: TSH 491. Free T4 1.31. Close follow-up as an outpatient. Code status: Limited. DVT prophylaxis: SCDs Analgesia/sedation: Morphine Line/tube: PIV GI prophylaxis: Famotidine Nutrition: NPO PT: Ordered Prognosis: Guarded Disposition: Continue medical management. Azael Rashid Internal Medicine Resident [facility] Addendum Patient was seen in presence of patient's two granddaughters in great granddaughters today with manager of case in her nursing staff resident in visit. Honest and open dialogue regarding poor prognosis , burden and adverse effect and potential complication of PEG tube explained to them in detail . Patient's current updated medical condition discussed in visit . patient's long-term prognosis very poor, hospice and palliative care options discussed and counseling done regarding hospice and palliative care. Granddaughter mentioned that they want time to think about it and later today I visited patient again both the granddaughter's were already gone. We will discuss again hospice and palliative care option in a.m. Date of Service: Nov 04, 2024 Billing Provider: VICKEY MENDOZA MD, FRANCO LUIS, RES Nov 04, 2024 15:43 VICKEY MENDOZA MD Nov 04, 2024 18:15
[2024-11-05] VITALS (8 sets, daily range): BP systolic 110–122; BP diastolic 45–63; PULSE 61–138; RESP 20–25; TEMP 97.2–97.6; O2SAT 91–99
[2024-11-05 05:40] LABS: BASOPHILS % (AUTO) 0.1 % (0-1); EOSINOPHILS % (AUTO) 0 % (0-6); HEMATOCRIT 36.3 % (42.0-52.0); HEMOGLOBIN 12.2 g/dl (14.0-17.9); LYMPHOCYTES # (AUTO) 0.5 X10'3 (1.1-4.8); LYMPHOCYTES % (AUTO) 4.8 % (21-51); MEAN CORPUSCULAR HEMOGLOBIN 32.2 PG (27.0-31.0); MEAN CORPUSCULAR HGB CONC 33.6 g/dL (33.0-36.5); MEAN CORPUSCULAR VOLUME 95.6 FL (78-98); MEAN PLATELET VOLUME 8.9 FL (7.4-10.4); MONOCYTES # (AUTO) 0.8 X10'3 (0-0.9); MONOCYTES % (AUTO) 8.7 % (2-12); NEUTROPHILS # (AUTO) 8.4 X10'3 (1.8-7.7); NEUTROPHILS % (AUTO) 86.4 % (42-75); PLATELET COUNT 132 X10'3 (140-440); RED CELL DISTRIBUTION WIDTH 16.9 % (11.5-14.5); WHITE BLOOD COUNT 9.7 X10'3 (4.5-11.0)
[2024-11-05 05:57] LABS: ALANINE AMINOTRANSFERASE 34 U/L (12-78); ALBUMIN 1.8 G/DL (3.4-5.0); ALBUMIN/GLOBULIN RATIO 0.7 (1.1-1.5); ALKALINE PHOSPHATASE 86 IU/L (46-116); ANION GAP 5 (8-16); ASPARTATE AMINO TRANSFERASE 93 U/L (10-37); BILIRUBIN,TOTAL 2.5 MG/DL (0.1-1.0); BLOOD UREA NITROGEN 35 MG/DL (7-18); CALCIUM 10.6 MG/DL (8.5-10.1); CHLORIDE 110 MMOL/L (99-107); GLUCOSE 117 MG/DL (70-104); MAGNESIUM 1.5 MG/DL (1.5-2.4); PHOSPHORUS 2.4 MG/DL (2.3-4.5); POTASSIUM 4.2 MMOL/L (3.5-5.1); SODIUM 143 MMOL/L (135-145); TOTAL CARBON DIOXIDE 28.4 MMOL/L (24-32); TOTAL PROTEIN 4.4 G/DL (6.4-8.2); eCRCL 46 ML/MIN; eGFR 71 ML/MIN
--- NOTE | 2024-11-05 08:57 | RADIOLOGY REPORT ---
CHEST RADIOGRAPH Indication: Infiltrate Technique: Single frontal view of the chest was obtained COMPARISON: DI CHEST,SINGLE VIEW on DOS: 11/04/24, DI CHEST,SINGLE VIEW on DOS: 11/03/24, DI CHEST,SING LE VIEW on DOS: 11/02/24, DI CHEST,SINGLE VIEW on DOS: 11/01/24, DI CHEST,SINGLE VIEW on DOS: 11/01/24 FINDINGS: Lines and Tubes: None Lungs: Multifocal airspace disease. Unchanged opacification of the left hemithorax. Pleura: Moderate to large left pleural effusion. No pneumothorax. Cardiomediastinal contours: Unremarkable Bones: Unremarkable IMPRESSION: No significant interval change.
[2024-11-05] MEDS ORDERED: ondansetron/PF 4mg/2ml inj IV PRN (13:35)
[2024-11-05] MEDS ORDERED: morphine 10mg/0.5ml (conc. morphine) oral syringe PO PRN (13:35)
[2024-11-05] MEDS ORDERED: diazepam inj 5 MG/ML inj. IV PRN (13:35)
[2024-11-05] MEDS ORDERED: acetaminophen 650mg rectal suppository RC PRN (13:35)
[2024-11-05] MEDS: scopolamine 1MG/72H patch 1 PATCH PATCH.TD.3 TD SCH (14:12)
--- NOTE | 2024-11-05 18:24 | PROGRESS NOTE- Residence ---
Progress Note - Resident Providers to CC Resident Creating Document: AZAEL WARE, RES ~ Antibiotic Timeout Antibiotic Ordered?: No Subjective Patient has been evaluated at the bedside. The patient is currently on high- flow nasal cannula FiO2 75%. Not oriented to person, place or time. Objective Vital Signs Date Time Temp Pulse Resp B/P (MAP) Pulse Ox O2 Delivery O2 Flow Rate FiO2 11/05/24 11:35 63 20 93 40.0 70 11/05/24 11:00 97.6 119/56 (77) High Flow Nasal Cannula Physical exam: General: Patient is currently lethargic. Mumbling when tried to answer questions. HEENT: Conjunctive are pink, sclerae clear, no icterus, pupil is equal in both sides, reactive to light, no ear discharge, no pharyngeal erythema or an edema. Neck: Supple, no JVD, no lymphadenopathy and thyromegaly. Chest: Diminished air entry in the left side, coarse breath sounds auscultated bilaterally. 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 Central Nervous System: The patient is currently lethargic. Skin: Warm and dry. Result Diagram: 11/05/24 0511 11/05/24 0511 Coagulation Studies Laboratory Tests Test 11/01/24 10:04 Prothrombin Time 16.9 SECONDS (9.0-12.0) H INR International Normalized Ratio 1.7 INR Coagulation Comments Assessment Assessment 88-year-old male patient with baseline dementia, admitted with chief complaint of hypotension after being found with low blood pressures in [facility]. Psychiatric Np communicated to the family about the prognosis of the patient on 11/03/2024. Family meeting on 11/04/2024, granddaughter not sure yet about changing code status of the patient. Discussed with POA on 11/05/2024, DNR with comfort care decided. Plan Plan Acute hypoxemic respiratory failure: Community-acquired Bacterial pneumonia: Covering Gram-positive and Gram- negative organisms: Left pleural effusion, s/p thoracentesis on 11/03/2024: Acute exacerbation of diastolic congestive heart failure: Hypotension-resolved AFib with RVR: Severe malnutrition POA: Subclinical hypothyroidism: Comfort care measurements started on 11/05/2024. On acetaminophen 650 mg q.6h PRN for fever. Diazepam 5 mg q.2h PRN for anxiety. Morphine 2 mg q.2h PRN for moderate pain. Morphine 4 mg q.2h PRN for severe pain. On scopolamine one patch q.72 hours Code status: DNR comfort care DVT prophylaxis: SCDs Analgesia/sedation: Morphine, Ativan. Nutrition: Comfort care management. Prognosis: Poor Patient's poor prognosis explained and POA decided to go for the hospice and comfort care in the hospital. She wants to continue high-flow oxygen because her brothers were coming to see the patient. Counseling done again regarding hospice and comfort care and new orders placed. Azael Rashid Internal Medicine Resident [facility] Date of Service: Nov 05, 2024 Billing Provider: VICKEY MENDOZA MD Common Visit Codes: [id number] INP/OBS CARE(HIGH) AZAEL WARE, RES Nov 05, 2024 18:24 VICKEY MENDOZA MD Nov 05, 2024 18:31
[2024-11-05] MEDS: morphine 2 MG/ML inj. syringe IV PRN (20:29)
[2024-11-05] MEDS: morphine 4 MG/ML inj SYRINge IV PRN (23:22)
[2024-11-06 00:06] VITALS: RESP 23; O2SAT 98
[2024-11-06 03:04] VITALS: PULSE 136; RESP 20; O2SAT 96
[2024-11-06 08:47] VITALS: PULSE 122; RESP 22; O2SAT 98
--- NOTE | 2024-11-06 13:59 | PROGRESS NOTE- Residence ---
Progress Note - Resident Providers to CC Resident Creating Document: AZAEL WARE, DAHLIA ~ Antibiotic Timeout Antibiotic Ordered?: No Subjective Patient has been evaluated at the bedside. The patient is currently comfortable. Discontinued high-flow nasal cannula. Objective Vital Signs Date Time Temp Pulse Resp B/P (MAP) Pulse Ox O2 Delivery O2 Flow Rate FiO2 11/06/24 09:35 High Flow Nasal Cannula 40.0 11/06/24 08:47 122 22 98 75 11/05/24 18:00 97.6 118/45 (69) Physical exam: General: Patient is currently lethargic. Mumbling when tried to answer questions. HEENT: Conjunctive are pink, sclerae clear, no icterus, pupil is equal in both sides, reactive to light, no ear discharge, no pharyngeal erythema or an edema. Neck: Supple, no JVD, no lymphadenopathy and thyromegaly. Chest: Diminished air entry in the left side, coarse breath sounds auscultated bilaterally. 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 Central Nervous System: The patient is currently lethargic. Skin: Warm and dry. Result Diagram: 11/05/24 0511 11/05/24 0511 Coagulation Studies Laboratory Tests Test 11/01/24 10:04 Prothrombin Time 16.9 SECONDS (9.0-12.0) H INR International Normalized Ratio 1.7 INR Coagulation Comments Assessment Assessment 88-year-old male patient with baseline dementia, admitted with chief complaint of hypotension after being found with low blood pressures in [facility]. Rehab Nurse communicated to the family about the prognosis of the patient on 11/03/2024. Family meeting on 11/04/2024, granddaughter not sure yet about changing code status of the patient. Discussed with POA on 11/05/2024, DNR with comfort care decided. Plan Plan Acute hypoxemic respiratory failure: Community-acquired Bacterial pneumonia: Covering Gram-positive and Gram- negative organisms: Sepsis. Sepsis criteria: (heart rate> 90, RR> 20, presence of source of infection): Left pleural effusion, s/p thoracentesis on 11/03/2024: Acute exacerbation of diastolic congestive heart failure: Hypotension-resolved AFib with RVR: Severe malnutrition POA: Subclinical hypothyroidism: Comfort care measurements started on 11/05/2024. On acetaminophen 650 mg q.6h PRN for fever. Diazepam 5 mg q.2h PRN for anxiety. Morphine 2 mg q.2h PRN for moderate pain. Morphine 4 mg q.2h PRN for severe pain. On scopolamine one patch q.72 hours. 11/06/2024: Family at the bedside. Communicated that we will stop high-flow nasal cannula due to comfort care measurements. Family agreed. Code status: DNR comfort care DVT prophylaxis: SCDs Analgesia/sedation: Morphine, Ativan. Nutrition: Comfort care management. Prognosis: Poor Disposition: Continue comfort care management. Azael Rashid Internal Medicine Resident [facility] Date of Service: Nov 06, 2024 Billing Provider: KIP SMITH MD Common Visit Codes: [id number] INP/OBS CARE(HIGH) AZAEL WARE, RES Nov 06, 2024 13:59 KIP SMITH MD Nov 06, 2024 21:04
--- NOTE | 2024-11-08 18:58 | DISCHARGE SUMMARY-Residence ---
Discharge Summary Providers to CC Resident Creating Document: JORDY WARE, RES ~ Discharge Summary Admission Diagnosis: Hypotension Hospital Course DATE OF ADMISSION: 11/01/2024 DATE OF DISCHARGE: 11/08/2024 Discharge Diagnosis\Comment: Acute hypoxemic respiratory failure Community-acquired Bacterial pneumonia: Covering Gram-positive and Gram- negative organisms Sepsis. Sepsis criteria: (heart rate> 90, RR> 20, presence of source of infection) Left pleural effusion, s/p thoracentesis on 11/03/2024: Acute exacerbation of diastolic congestive heart failure Hypotension-resolved AFib with RVR: Severe malnutrition POA Subclinical hypothyroidism Operations\Procedures: Thoracentesis Consultants: Activated Sludge Operator Complications: None Condition on DC: Discharge Summary: HPI: Recently discharge to a SNF from this hospital with PNA. H/O Advance Dementia with very limited activity level. Very poor appetite since last admission and gradually more weak. Sent to ER due to hypoxemia and hypotension. He does have large L Pleural Effusion. Hospital course: 88-year-old male patient admitted with the acute hypoxemic respiratory failure likely secondary to bacterial pneumonia and superimposed aspiration pneumonia. Initially the patient was evidenced with left pleural effusion, thoracentesis was performed 11/03/2024. The patient was started on antibiotics to cover Gram- positive, Gram-negative and anaerobes. The patient required high-flow nasal cannula with a FiO2 75 %. The patient did not show improvement. Associated to these symptoms the patient also had hypotension, for which the patient initially required vasopressors, the patient blood pressure remained stable after transferred to PCU from ICU. Despite medical management the patient did not show signs of improvement, family meeting underwent on November 05, 2024. Comfort care was decided. Comfort care measurements were started. On the night of 11/07/2024 the patient . Discharge course: The patient on 11/07/2024. At 12:45 a.m. *Problems/Diagnosis: (1) ONUR (acute kidney injury) Status: Acute (2) Aspiration pneumonia Status: Acute (3) Pneumonia Status: Acute (4) Hypotension Status: Acute (5) CHF (congestive heart failure) Status: Acute Total Time Spent on D/C: > 30 Minutes Date of Service: Nov 07, 2024 Billing Provider: KIP SMITH MD Common Visit Codes: [id number] DISCH DAY >30min Problem Qualifiers (1) CHF (congestive heart failure): Heart failure type: diastolic JORDY WARE, RES Nov 08, 2024 18:58 KIP SMITH MD Nov 10, 2024 08:40
== END 2024-11-07 05:30 | DRG 871 ==
LOC: ER 09:01 → ED HOLD 12:48 → CICU 2S 14:06 → PCU 3S 11-03 14:57 → SUR 3N 11-05 23:40
PROVIDERS: ADMIT Internal Medicine Critical Care Medicine; ATTEND Internal Medicine Critical Care Medicine
PROC: 5A0945A Assistance with Respiratory Ventilation, 24-96 Consecutive Hours, High Flow/Velocity Cannula (ICD-10-PCS; 2024-11-02)
PROC: 0W9B3ZZ Drainage of Left Pleural Cavity, Percutaneous Approach (ICD-10-PCS; principal; 2024-11-03)
DX: A41.9 Sepsis, unspecified organism (principal); E43 Unspecified severe protein-calorie malnutrition; J96.01 Acute respiratory failure with hypoxia; J15.9 Unspecified bacterial pneumonia; I50.33 Acute on chronic diastolic (congestive) heart failure; J69.0 Pneumonitis due to inhalation of food and vomit; J15.69 Pneumonia due to other Gram-negative bacteria; I48.20 Chronic atrial fibrillation, unspecified; J91.8 Pleural effusion in other conditions classified elsewhere; I13.0 Hypertensive heart and chronic kidney disease with heart failure and stage 1 through stage 4 chronic kidney disease, or unspecified chronic kidney disease; F03.C0 Unspecified dementia, severe, without behavioral disturbance, psychotic disturbance, mood disturbance, and anxiety; E03.9 Hypothyroidism, unspecified; E86.0 Dehydration; N18.30 Chronic kidney disease, stage 3 unspecified; Z85.46 Personal history of malignant neoplasm of prostate; Z89.511 Acquired absence of right leg below knee; Z85.828 Personal history of other malignant neoplasm of skin; Z79.01 Long term (current) use of anticoagulants; Z79.899 Other long term (current) drug therapy; Z68.20 Body mass index [BMI] 20.0-20.9, adult
CPT/HCPCS: 32555; 36415; 71045; 80053; 81001; 82140; 82728; 82948; 83540; 83550; 83605; 83735; 83880; 84100; 84132; 84145; 84439; 84443; 84484; 85025; 85610; 87040; 87081; 87088; 94760; 99291; A4314; A4615; A5200; A6209; A6212; A6213; A6250; A6258; A6449; C1758; G0378; J0282; J0692; J0696; J1938; J2270; J3480; J3490; J7030; J7040; J7070; J7120; P9047